=== PATIENT | female | born 1955 | race Hispanic/Latino ===

== ENCOUNTER 2017-10-13 09:57 | Emergency (ER) | payer MEDICARE ==
[~2017-10-13 09:57] MED LIST: AMLO5TAB2 PO; ASPI-1012 PO; CARV6.25 PO; ESOM40CA54 PO; FLUO-126 PO; HYDR-2132 PO; MONT10TA24 PO
[2017-10-13] MEDS ORDERED: IBUPROFEN 600 MG TABLET ONE (10:24)
== END 2017-10-13 10:35 | disposition home or self-care (01) ==
LOC: EDH 09:57
DX: S52.591A Other fractures of lower end of right radius, initial encounter for closed fracture (principal); J45.909 Unspecified asthma, uncomplicated; I10 Essential (primary) hypertension; M81.0 Age-related osteoporosis without current pathological fracture; Z88.6 Allergy status to analgesic agent; W01.0XXA Fall on same level from slipping, tripping and stumbling without subsequent striking against object, initial encounter; Y93.89 Activity, other specified; Y92.098 Other place in other non-institutional residence as the place of occurrence of the external cause; Y99.8 Other external cause status
CPT/HCPCS: 29125; 73090

== ENCOUNTER → 2019-07-22 | Outpatient (CLI) | payer MEDICARE ==
[~2019-07-22] MED LIST changes: -AMLO5TAB2 PO; +AMLO5TAB9 PO; -FLUO-126 PO; +FLUO20CA34 PO
== END | disposition home or self-care (01) ==
LOC: RAH 11:55
PROVIDERS: ATTEND Orthopaedic Surgery
DX: S83.242A Other tear of medial meniscus, current injury, left knee, initial encounter (principal); M25.462 Effusion, left knee; M71.22 Synovial cyst of popliteal space [Baker], left knee; M17.12 Unilateral primary osteoarthritis, left knee; X58.XXXA Exposure to other specified factors, initial encounter; Y93.89 Activity, other specified; Y92.89 Other specified places as the place of occurrence of the external cause; Y99.8 Other external cause status
CPT/HCPCS: 73721

== ENCOUNTER → 2019-12-18 | Outpatient (CLI) | payer MEDICARE ==
[~2019-12-18] MED LIST changes: -FLUO20CA34 PO; +FLUO20CA35 PO; -MONT10TA24 PO; +MONT10TA26 PO
== END | disposition home or self-care (01) ==
LOC: CANSCHCLI → SHCH 11:13
PROVIDERS: ATTEND Internal Medicine Cardiovascular Disease
DX: I35.0 Nonrheumatic aortic (valve) stenosis (principal)
CPT/HCPCS: 93306; 93356

== ENCOUNTER → 2020-01-19 | Outpatient (CLI) | payer MEDICARE ==
[~2020-01-19] MED LIST changes: +REGADENOSON 0.4 MG/5 ML PF SYG IVP ONE; +REGADENOSON 0.4 MG/5 ML PF SYG IVP SCH
== END | disposition home or self-care (01) ==
LOC: SHCH 08:35
PROVIDERS: ATTEND Internal Medicine Cardiovascular Disease
DX: R06.09 Other forms of dyspnea (principal); G89.29 Other chronic pain; R06.02 Shortness of breath
CPT/HCPCS: 78452; 93017; 96374; A9500 ×2; J2785 ×2

== ENCOUNTER 2020-06-15 09:45 | Observation (INO) | payer MEDICARE ==
[~2020-06-15] VITALS: Ht 157.5 cm; Wt 91.7 kg
[~2020-06-15 09:45] MED LIST changes: +AMLO-257 PO; -AMLO5TAB9 PO; -ASPI-1012 PO; -CARV6.25 PO; -ESOM40CA54 PO; -FLUO20CA35 PO; -HYDR-2132 PO; -MONT10TA26 PO; -REGADENOSON 0.4 MG/5 ML PF SYG IVP ONE; -REGADENOSON 0.4 MG/5 ML PF SYG IVP SCH
[2020-06-15 13:12] LABS: BASOPHILS % (AUTO) 0.7 % (0.0-5.0); EOSINOPHILS % (AUTO) 2.4 % (0.0-8.0); HEMATOCRIT 45.1 % (36-48); LYMPHOCYTES % (AUTO) 29.3 % (21.0-51.0); MEAN CORPUSCULAR HEMOGLOBIN 31.2 pg (27.0-33.0); MEAN CORPUSCULAR HGB CONC 32.8 g/dL (32.0-36.0); MEAN CORPUSCULAR VOLUME 94.9 fL (79-99); MONOCYTES % (AUTO) 10.1 % (3.0-13.0); NEUTROPHILS % (AUTO) 57.3 % (40.0-77.0); PLATELET COUNT (AUTO) 243 K/uL (130-400); RED BLOOD CELL COUNT(AUTO) 4.75 MIL/uL (4.00-5.50); RED CELL DISTRIBUTION WIDTH 12.6 % (11.0-15.5); WHITE BLOOD COUNT (AUTO) 5.4 K/uL (4.8-10.8)
[2020-06-15 13:17] LABS: APPEARANCE,URINE Clear (CLEAR); BILIRUBIN,URINE Negative (NEGATIVE); COLOR,URINE Yellow (YELLOW); GLUCOSE, URINE (UA) Negative (NEGATIVE); KETONES,URINE Negative (NEGATIVE); LEUKOCYTE ESTERASE ,URINE Trace (NEGATIVE); NITRATE,URINE Negative (NEGATIVE); OCCULT BLOOD,URINE Negative (NEGATIVE); PH,URINE 6.5 (5.0-8.0); PROTEIN,URINE Negative (NEGATIVE)
[2020-06-15 13:26] LABS: INR 0.91 (0.85-1.15); PROTHROMBIN TIME 9.9 SEC (9.6-11.6)
[2020-06-15 13:29] LABS: CREATININE 0.9 mg/dL (0.5-1.5); POTASSIUM 4.1 mmol/L (3.5-5.1)
[2020-06-15 14:14] LABS: BACTERIA,URINE None Seen /HPF (None Seen); RBC,URINE None Seen /HPF (0-1); WBC,URINE 0-1 /HPF (0-1)
[2020-06-21 09:16] VITALS: BP 169/89
[2020-06-21] MEDS ORDERED: CARV12.511 PO (09:58)
[2020-06-21] MEDS ORDERED: DEXL60CA3 PO (09:58)
[2020-06-21] MEDS ORDERED: PARO-37 PO (09:58)
[2020-06-21] MEDS ORDERED: AEC81 PO (09:58)
[2020-06-21] MEDS ORDERED: BREO ELLIPTA IH (09:58)
[2020-06-21] MEDS ORDERED: MONT10TA96 PO (09:58)
[2020-06-21] MEDS ORDERED: ALBU2.5V2 IH (09:58)
--- NOTE | 2020-06-21 10:12 | NUR ---
RE: ABNORMAL LABS REPORTED ABNORMAL URINALYSIS TO DR AMARO, NO NEW ORDERS RECEIVED.
[2020-06-22] VITALS (27 sets, daily range): BP systolic 95–144; BP diastolic 40–89
[2020-06-22] MEDS ORDERED: LACTATED RINGERS 1000ML 1,000 ML IV ONE (06:41)
[2020-06-22] MEDS: CEFAZOLIN SODIUM 1 GM VIAL IVP SCH ×3 (06:55→17:30)
[2020-06-22] MEDS ORDERED: CEFAZOLIN SODIUM 1 GM VIAL ONE (07:02)
[2020-06-22] MEDS ORDERED: TRANEXAMIC ACID 1000MG/10ML ONE ×2 (07:02→10:51)
[2020-06-22] MEDS ORDERED: DEXAMETHASONE SOD PHOSPHATE 10MG/ML 1ML VIAL ONE (07:32)
[2020-06-22] MEDS ORDERED: SUCCINYLCHOLINE CHLORIDE 20 MG/ML 10 ML VIAL ONE (07:32)
[2020-06-22] MEDS ORDERED: NEOSTIGMINE 5MG/5ML SYR IV ONE (07:32)
[2020-06-22] MEDS ORDERED: PROPOFOL 10 MG/ML 20ML VIAL IV ONE (07:32)
[2020-06-22] MEDS ORDERED: LIDOCAINE PF 2% 5ML ABBOJECT ONE (07:32)
[2020-06-22] MEDS ORDERED: ONDANSETRON HCL 4 MG/2 ML VIAL ONE (07:32)
[2020-06-22] MEDS ORDERED: GLYCOPYRROLATE 1 MG/5 ML SYRINGE ONE (07:32)
[2020-06-22] MEDS ORDERED: MIDAZOLAM HCL 1 MG/ML 2ML VIAL ONE (07:33)
[2020-06-22] MEDS ORDERED: ROCURONIUM 10MG/1ML SYR 10 MG/ML ML ONE (07:33)
[2020-06-22] MEDS ORDERED: FENTANYL CITRATE PF 50 MCG/1 ML 2ML VIAL ONE (07:33)
[2020-06-22] MEDS ORDERED: MEPERIDINE-PF 25 MG/ML SYG ONE ×3 (07:37→11:26)
[2020-06-22] MEDS ORDERED: ROPIVACAINE 0.5% 5MG/ML 30ML IJ ONE (07:39)
[2020-06-22] MEDS ORDERED: EPHEDRINE SULFATE 50 MG/ML AMPULE ONE (08:14)
[2020-06-22] MEDS ORDERED: HETASTARCH IN 0.9 % NACL 500 ML IV ONE (08:21)
[2020-06-22] MEDS ORDERED: ALBUTEROL INHALER 90MCG/INH IH ONE (09:30)
[2020-06-22] MEDS ORDERED: KETOROLAC TROMETHAMINE 30MG/ML ONE (10:10)
[2020-06-22] MEDS ORDERED: LIDOCAINE HCL-MPF 1% 2ML VIAL IV PRN (10:30)
[2020-06-22] MEDS: SODIUM CHLORIDE 0.9% 1000ML 1,000 ML IV SCH ×2 (10:30→20:30)
[2020-06-22] MEDS ORDERED: ONDANSETRON HCL 4 MG/2 ML VIAL IVP PRN (10:30)
[2020-06-22] MEDS ORDERED: OXYCODONE HCL 5 MG TAB PO PRN (10:30)
[2020-06-22] MEDS ORDERED: TRAMADOL HCL 50 MG TABLET PO PRN (10:30)
[2020-06-22] MEDS ORDERED: TEMAZEPAM 15 MG CAPSULE PO PRN (10:30)
[2020-06-22] MEDS: ACETAMINOPHEN EXTRA STRENGTH 500 MG TABLET PO SCH ×2 (10:30→18:47)
[2020-06-22] MEDS ORDERED: CALCIUM CARBONATE 500 MG TABLET PO PRN (10:30)
[2020-06-22] MEDS ORDERED: POTASSIUM CHLORIDE 20 MEQ ERTAB PO PRN (10:30)
[2020-06-22] MEDS ORDERED: POTASSIUM CHLORIDE 10% ELIXIR 20 MEQ/15 ML UDCUP PO PRN (10:30)
[2020-06-22] MEDS ORDERED: DiphenhydrAMINE HCL 50 MG/ML VIAL IVP PRN (10:30)
[2020-06-22] MEDS ORDERED: KETOROLAC TROMETHAMINE 15MG/ML IV PRN (10:30)
[2020-06-22] MEDS ORDERED: POTASSIUM CHLORIDE 20MEQ/100ML 100 ML IV PRN (10:30)
[2020-06-22] MEDS ORDERED: FERROUS FUMARATE 324 MG TABLET PO PRN (10:30)
--- NOTE | 2020-06-22 15:25 | NUR ---
DCP CM met with pt discussed dc plans. Pt is independent prior to admission, lives at home with daughter. Pt has a current working walker, wheelchair, bedside commode. Denies any other equipments/services. Feels safe to go back home, daughter able to assist with transportation and needs as necessary. Pt agreeble for home w/HH, NUNO signed for [facility]. DC plan to home w/HH. CM to continue to follow up. Addendum: 06/22/20 at 1527 by JOSE CRUZ ARCEO LVN CM Amended: Links added.
--- NOTE | 2020-06-22 15:32 | NUR ---
CM Note: [facility] pending approval Faxed order, clinicals to [facility]. Spoke to Micaela, received clinicals, will run benefits. Pt pending approval. Primary nurse Naomie KHAN aware. CM to continue to follow up.
--- NOTE | 2020-06-22 16:15 | NUR ---
CM Note: [facility] approval CM spoke to Micaela flores/[facility], pt has approval. Pt has own working current standard walker no wheels and 3in1 chair. Pt safe to DC once MD clear. Primary nurse Naomie KHAN aware. Dr Schulz updated. CM to continue to follow up.
[2020-06-22] MEDS ORDERED: ALBUTEROL SULFATE 0.083% 2.5 MG/3 ML INH IH PRN (16:30)
[2020-06-22] MEDS ORDERED: ARTIFICAL TEARS SOL 15 ML OD PRN (17:45)
[2020-06-22] MEDS: BUDESONIDE 0.5 MG/2 ML INH IH SCH (18:22)
[2020-06-22] MEDS: ALBUTEROL SULFATE 0.083% 2.5 MG/3 ML INH IH SCH ×2 (18:22→23:41)
--- NOTE | 2020-06-22 20:00 | NUR ---
PATIENT RECEIVED IN BED, AAOX3, NO ACUTE DISTRESS NOTED. POST OP LEFT TKA, WITH DRESSING DRY AND INTACT, PICCO FLASHING "OK". POC DISCUSSED WITH PATIENT, INSTRUCTED ON PAIN CONTROL. PATIENT VOICED UNDERSTANDING. WILL CONT TO MONITOR CLOSELY. Addendum: 06/22/20 at 2103 by SUJATA MICHELLE RN RN Amended: Links added.
[2020-06-22] MEDS: OXYCODONE HCL 5 MG TAB PO PRN (20:42)
[2020-06-22] MEDS: CELECOXIB 200 MG CAP PO SCH (20:43)
[2020-06-22] MEDS: ASPIRIN 81MG TAB.CHEW PO SCH (20:43)
[2020-06-22] MEDS: PREGABALIN 25 MG CAP PO SCH (20:43)
[2020-06-22] MEDS: CARVEDILOL 12.5 MG TABLET PO SCH (20:43)
[2020-06-22] MEDS: FAMOTIDINE 20MG TAB 20 MG TAB PO SCH (20:43)
[2020-06-22] MEDS ORDERED: MONTELUKAST SODIUM 10 MG TAB PO SCH (21:00)
[2020-06-23] MEDS: CEFAZOLIN SODIUM 1 GM VIAL IVP SCH (02:38)
[2020-06-23] MEDS: ACETAMINOPHEN EXTRA STRENGTH 500 MG TABLET PO SCH ×2 (02:39→11:59)
[2020-06-23 03:49] VITALS: BP 125/70
[2020-06-23 03:51] LABS: HEMATOCRIT 35.2 % (36-48); MEAN CORPUSCULAR HEMOGLOBIN 31.2 pg (27.0-33.0); MEAN CORPUSCULAR VOLUME 94.6 fL (79-99); RED BLOOD CELL COUNT(AUTO) 3.72 MIL/uL (4.00-5.50); RED CELL DISTRIBUTION WIDTH 12.6 % (11.0-15.5); WHITE BLOOD COUNT (AUTO) 8.6 K/uL (4.8-10.8)
[2020-06-23 04:05] LABS: CREATININE 0.9 mg/dL (0.5-1.5); POTASSIUM 3.7 mmol/L (3.5-5.1)
[2020-06-23] MEDS: ALBUTEROL SULFATE 0.083% 2.5 MG/3 ML INH IH SCH ×2 (06:20→11:10)
[2020-06-23] MEDS: BUDESONIDE 0.5 MG/2 ML INH IH SCH (06:20)
[2020-06-23] MEDS: SODIUM CHLORIDE 0.9% 1000ML 1,000 ML IV SCH (06:30)
[2020-06-23] MEDS: OXYCODONE HCL 5 MG TAB PO PRN ×3 (08:35→16:12)
[2020-06-23] MEDS: CELECOXIB 200 MG CAP PO SCH (08:36)
[2020-06-23] MEDS: ASPIRIN 81MG TAB.CHEW PO SCH (08:36)
[2020-06-23] MEDS: CARVEDILOL 12.5 MG TABLET PO SCH (08:37)
[2020-06-23] MEDS: PREGABALIN 25 MG CAP PO SCH (08:37)
[2020-06-23 08:56] VITALS: BP 125/78
[2020-06-23] MEDS ORDERED: PANTOPRAZOLE SODIUM 40 MG TABLET.DR PO SCH (09:00)
[2020-06-23] MEDS: FAMOTIDINE 20MG TAB 20 MG TAB PO SCH (09:00)
[2020-06-23] MEDS ORDERED: AMLODIPINE BESYLATE 5 MG TAB PO SCH (09:00)
[2020-06-23] MEDS ORDERED: PAROXETINE HCL 20 MG TABLET PO SCH (09:00)
[2020-06-23] MEDS ORDERED: POLYETHYLENE GLYCOL 3350 17 GM POWD.PACK PO SCH (09:00)
--- NOTE | 2020-06-23 13:03 | NUR ---
[id number] patient signed RATLIFF Letter, I faxed RATLIFF Letter to [phone] and placed in chart under consent tab.
[2020-06-23 16:24] VITALS: BP 161/84
[2020-06-23] MEDS ORDERED: AEC81 PO (18:12)
[2020-06-23] MEDS ORDERED: HYDR-4457 PO (18:12)
--- NOTE | 2020-06-23 19:00 | NUR ---
D/C PAPERWORK COMPLETE, D/C REPORT CALLED VIN AT [facility] D/C INSTRUCTIONS ON AFTER CARE FOR A KNEE REPLACEMENT GIVEN TO PATIENT AND SHAHEEN DRESSING CHANGED, IV ACCESS REMOVED; PT INSTRUCTED ON PATIENT ACTIVITY WBAT W/ WALKER, PAIN MEDICATION, BLOOD THINNER MEDICATION ASPIRIN BID, SIGNS AND SYMPTOMS OF INFECTION OR OTHER PROBLEMS TO REPORT TO MD OR CALL 911 IF AN EMERGENCY, CARE OF SHAHEEN DRESSING INCLUDING OK TO GET WET WHEN SHOWERING--PT STATED UNDERSTANDING OF ALL INSTRUCTIONS.
[2020-06-25] MEDS ORDERED: BISACODYL 10 MG SUPP.RECT RC PRN (10:30)
== END 2020-06-23 19:50 | disposition home health service (06) ==
LOC: EDSTATUS 09:45 → INTOOBSV 06-22 06:00 → DAHIP 06-22 06:00 → 3BH 06-22 12:13
PROVIDERS: ADMIT Orthopaedic Surgery; ATTEND Orthopaedic Surgery
DX: M17.12 Unilateral primary osteoarthritis, left knee (principal); Z20.828 Contact with and (suspected) exposure to other viral communicable diseases; D64.9 Anemia, unspecified
CPT/HCPCS: 27447; 36415 ×2; 80048 ×2; 81001; 85025; 85027; 85610; 87641; 88305; 88311; 94640 ×5; 94664; 96361 ×2; 96374; 96376; 97039 ×4; 97116 ×2; 97161; 97530 ×2; A4215; A4216; A4221; A4222; A4223 ×2; A4649 ×3; A4657; A4663; A4930 ×2; A9272; C1776; G0378 ×30; G8978; G8979; G8980; G8981; G8982; G8983; J0330; J0690 ×3; J1100; J1885; J2001; J2175 ×3; J2250; J2405; J2704; J2710; J2795; J3010; J3490 ×5; J7120 ×2; U0003

== ENCOUNTER → 2021-03-23 | Outpatient (CLI) | payer MEDICARE ==
[~2021-03-23] MED LIST changes: +AEC81 PO; +ALBU2.5V2 IH; +BREO ELLIPTA IH; +CARV12.511 PO; +DEXL60CA3 PO; +HYDR-4457 PO; +MONT10TA32 PO; +PARO-37 PO
== END | disposition home or self-care (01) ==
LOC: RAH 10:39
PROVIDERS: ATTEND Internal Medicine Gastroenterology
DX: R14.0 Abdominal distension (gaseous) (principal); R10.13 Epigastric pain; R11.2 Nausea with vomiting, unspecified; R10.11 Right upper quadrant pain
CPT/HCPCS: 78264; A9541

== ENCOUNTER 2021-12-06 22:55 | Emergency (ER) | payer MEDICARE ==
[~2021-12-06] VITALS: Ht 157.5 cm; Wt 91.2 kg
[~2021-12-06 22:55] MED LIST changes: +MONT-39 PO; -MONT10TA32 PO
[2021-12-07 00:05] VITALS: BP 138/75
== END 2021-12-07 01:13 | disposition home or self-care (01) ==
LOC: EDH 22:55
DX: S01.01XA Laceration without foreign body of scalp, initial encounter (principal); Z88.5 Allergy status to narcotic agent; Z79.82 Long term (current) use of aspirin; Z79.899 Other long term (current) drug therapy; W01.198A Fall on same level from slipping, tripping and stumbling with subsequent striking against other object, initial encounter; Y93.89 Activity, other specified; Y92.89 Other specified places as the place of occurrence of the external cause; Y99.8 Other external cause status
CPT/HCPCS: 12002; 70450; 72125

== ENCOUNTER → 2023-12-11 | Outpatient (CLI) | payer MEDICARE ==
[~2023-12-11] MED LIST changes: -AEC81 PO; -ALBU2.5V2 IH; -DEXL60CA3 PO; -HYDR-4457 PO; +OMEP40CA21 PO; -PARO-37 PO; +PARO30TA60 PO
== END | disposition home or self-care (01) ==
LOC: RAH 08:55
PROVIDERS: ATTEND Surgery
DX: K44.9 Diaphragmatic hernia without obstruction or gangrene (principal); R12 Heartburn; Z93.4 Other artificial openings of gastrointestinal tract status
CPT/HCPCS: 74240

== ENCOUNTER → 2024-05-06 | Outpatient (CLI) | payer MEDICARE | END | disposition home or self-care (01) | LOC: RAH 09:50 | PROVIDERS: ATTEND Surgery | DX: K44.9 Diaphragmatic hernia without obstruction or gangrene (principal); K21.9 Gastro-esophageal reflux disease without esophagitis | CPT/HCPCS: 74220 ==

== ENCOUNTER 2024-07-20 14:00 | Inpatient (IN) | payer MEDICARE ==
[~2024-07-20] VITALS: Ht 157.5 cm; Wt 74.5 kg
[~2024-07-20 14:00] MED LIST changes: -BREO ELLIPTA IH; -CARV12.511 PO; -OMEP40CA21 PO; -PARO30TA60 PO
[2024-07-20 15:39] VITALS: BP 131/77; PULSE 74; RESP 16; TEMP 97.7
[2024-07-20 15:59] LABS: BASOPHILS # (AUTO) 0.03 K/uL (0.00-0.20); BASOPHILS % (AUTO) 0.4 % (0.0-5.0); EOSINOPHILS # (AUTO) 0.02 K/uL (0.00-0.70); EOSINOPHILS % (AUTO) 0.3 % (0.0-8.0); IMMATURE GRANULOCYTE ABSOLUTE 0.01 K/uL (0-1); LYMPHOCYTES # (AUTO) 1.2 K/uL (1.0-4.8); LYMPHOCYTES % (AUTO) 17.5 % (21.0-51.0); MEAN CORPUSCULAR HEMOGLOBIN 31.3 pg (27.0-33.0); MEAN CORPUSCULAR HGB CONC 34.6 g/dL (32.0-36.0); MEAN CORPUSCULAR VOLUME 90.3 fL (79-99); MONOCYTES # (AUTO) 0.3 K/uL (0.1-1.0); MONOCYTES % (AUTO) 4.7 % (3.0-13.0); NEUTROPHILS # (AUTO) 5.4 K/uL (1.8-7.7); PLATELET COUNT (AUTO) 232 K/uL (130-400); RED BLOOD CELL COUNT(AUTO) 4.32 MIL/uL (4.00-5.50); RED CELL DISTRIBUTION WIDTH 12.2 % (11.0-15.5)
[2024-07-20 16:08] LABS: CREATININE 0.7 mg/dL (0.5-1.0); POTASSIUM 4.8 mmol/L (3.5-5.1)
--- NOTE | 2024-07-21 06:29 | EKG ---
[facility] Test Date: 2024-07-20 Test Time: 16:28:15 Pat Name: KATLIN HUMPHREY Department: Patient ID: [id number] Room: Gender: F Braze Operator: [id number] : 1955 Requested By: CRISTINA ARCEO Order Number: [id number] Reading MD: Eligio Birmingham Measurements Intervals [place] Rate: 70 P: 8 PA: 150 QRS: -27 QRSD: 89 T: 11 QT: 408 QTc: 440 Interpretive Statements Sinus rhythm Inferior infarct, old Compared to ECG 08/24/2022 12:05:09 No significant changes Electronically Signed On 07-21-2024 18:10:35 [employer] INSTRUCTOR by Eligio Birmingham Please click the below link to view image of tracing.
[2024-07-21] MEDS ORDERED: PANT40TA54 PO (09:04)
[2024-07-21] MEDS ORDERED: FAMO40TA75 PO (09:04)
[2024-07-21] MEDS ORDERED: CARV6.25 PO (09:04)
[2024-07-21] MEDS ORDERED: FLUT1BLS3 IH (09:04)
[2024-07-21] MEDS ORDERED: PARO7.5C2 PO (09:04)
--- NOTE | 2024-07-22 09:05 | NUR ---
RE: LABS REPORTED BMP RESULTS TO DR BAPTISTE, NO NEW ORDERS RECEIVED.
[2024-07-23] VITALS (24 sets, daily range): BP systolic 89–134; BP diastolic 31–70; PULSE 48–80; RESP 10–20; TEMP 97–97.8; O2SAT 96–99
[2024-07-23] MEDS: INDOCYANINE GREEN 25 MG VIAL IJ ONE (06:53)
[2024-07-23] MEDS: acetaMINOPHEN 100 ML ONE (07:03)
[2024-07-23] MEDS: FAMOTIDINE 20MG VIAL IV ONE (07:03)
[2024-07-23] MEDS ORDERED: ketaMINE HCL 100 MG/ML 5ML VIAL IJ ONE (07:09)
[2024-07-23] MEDS ORDERED: LIDOCAINE PF 100MG/5ML (2%) SYRINGE 5ML ONE (07:14)
[2024-07-23] MEDS ORDERED: FENTanyl CITRate PF 50 MCG/1 ML 2ML VIAL ONE (07:14)
[2024-07-23] MEDS ORDERED: rocuRONium bROMide 10MG/1ML 5ML VL ONE ×2 (07:14→08:35)
[2024-07-23] MEDS ORDERED: proPOFol 10 MG/ML 20ML VIAL IV ONE (07:14)
[2024-07-23] MEDS ORDERED: ondanSETRON 4MG INJ ONE (08:17)
[2024-07-23] MEDS ORDERED: dexaMETHasone SOD PHOSPHATE 10MG/ML 1ML VIAL ONE (08:17)
[2024-07-23] MEDS: ceFAZolin SODIUM 2 GM VIAL ONE (08:25)
[2024-07-23] MEDS ORDERED: ePHEDrine SULFate 50 MG/ML AMPULE ONE (08:25)
[2024-07-23] MEDS ORDERED: NEOSTIGMINE METHYLSULFATE 1MG/ML IV ONE (08:26)
[2024-07-23] MEDS ORDERED: GLYCOPYRROLATE 0.2 MG/ML 5 ML VIAL ONE (08:26)
[2024-07-23] MEDS: BUPIvacaine/PF 0.5% 30ML VIAL ONE (08:38)
[2024-07-23] MEDS ORDERED: phenylEPHRINE HCL 10 MG/ML 1ML VIAL IV ONE (09:01)
[2024-07-23] MEDS: metRONIDazole 500MG/100ML BAG 100 ML ONE (09:53)
[2024-07-23] MEDS: LACTATED RINGERS 1000ML 1,000 ML IV ONE (09:53)
[2024-07-23] MEDS ORDERED: PROCHLORPERAZINE 10MG/2ML INJ IV PRN (10:30)
[2024-07-23] MEDS: ENOXAPARIN SODIUM 30 MG/0.3 ML SQ SCH (10:30)
[2024-07-23] MEDS ORDERED: ketOROlac 15MG/ML VIAL (15MG/ML) IV PRN (10:30)
[2024-07-23] MEDS: LACTATED RINGERS 1000ML 1,000 ML IV SCH (10:30)
--- NOTE | 2024-07-23 11:20 | OP ---
Operative Note: DATE OF PROCEDURE: 07/23/24 SURGEON: CRISTINA ARCEO MD [employer]INEER[employer] OFFICER: Rm Arceo MD PA-C ANESTHESIA: General and Local ANESTHESIOLOGIST/PLUMBER AND TINNER: [facility] Anesthesia team PREOPERATIVE DIAGNOSIS: Gastroparesis, Symptomatic Gastro-esophageal reflux, Hx of Revision hiatal hernia repair with loop gastro-jejunostomy POSTOPERATIVE DIAGNOSIS: As above SYNOPSIS: Reversal of Loop Gastrojejunostomy and Conversion to you en y gastric bypass type anatomy performed for purposes of addressing recalcitrant GERD and gastroparesis PROCEDURE: 1. Robotic laparoscopic reversal of loop gastrojejunostomy 2. Creation of You-en-Y gastric bypass type anatomy to address gastroesophageal reflux and gastroparesis 3. EGD ESTIMATED BLOOD LOSS: min, <30cc INDICATIONS: Patient had previously undergone hiatal hernia repair with fundoplication and subsequent revision hiatal hernia repair and subsequent creation of loop gastrojejunostomy all to address severe symptomatic gastroes ophageal reflux in the setting of gastroparesis. Given the inability of these various operations to control her reflux symptoms and gastric emptying the patient is next available option was conversion to gastric bypass type anatomy. DESCRIPTION OF PROCEDURE: After standard precautions and preparations were undertaken a Veress needle and optical trocar were used to enter the abdominal cavity. All other instruments were placed under direct vision. The robotic system was docked in the standard fashion. We began our operation by identifying the gastrojejunostomy at the most dependent portion of the greater curve of the stomach. A linear stapler with staple line reinforcement was used to divide the anastomosis and separate the stomach away from the small bowel. Both staple lines were examined and found to be intact with no sign of leak or problem. We then moved to creation of the gastric pouch. We created a window between the lesser curve neurovascular bundle and the gastric wall. We entered the lesser sac. A linear stapler with staple line reinforcement was used to create a gastric pouch. Patient's previous hiatal hernia and subsequent revision hiatal hernia with fundoplication was not taken down due to excessive scarring and the pouch was created around this area. We then identified the ligament of Treitz and counted distally to approximately 50-75 cm to an area of small bowel that reached up to the pouch without significant tension. This loop of small bowel was sutured to the gastric pouch in anticipation of the future stapled anastomosis. Bowel was divided to create a distal cut end of the biliopancreatic limb and a proximal cut end of the You limb. The You limb was then counted down approximately 50 cm and mated to the cut end of the biliopancreatic limb in anticipation of the future jejunal jejunostomy anastomosis. Monopolar cautery was used to create a gastrotomy and enterotomy and a linear stapler was introduced to create an anastomosis at the gastrojejunostomy. The defect left behind of the stapler was sutured closed. Monopolar cautery was used to create two enterotomies in the area of the jejunal jejunostomy and a linear stapler was used to create the anastomosis. The defect left behind of the stapler was sutured closed. The mesenteric defect between the two limbs of small bowel as well as the defect between the transverse colon mesentery and antecolic You limb were closed using permanent suture to prevent future internal hernias. At the end of the case as well as throughout the case my partner utilize the EGD scope to verify appropriate anatomy. He was able to traverse the gastrojejunal anastomosis with no issue. He was able to take the scope distally and utilizing a robotic assisted method of telescoping the small bowel onto the scope was able to get to the jejunal jejunostomy as well. Both anastomosis were widely patent with no sign of leak or problem. The end of the case all instrument counts were verified as correct including needles and sponges. CRISTINA ARCEO MD Jul 23, 2024 11:20
--- NOTE | 2024-07-23 12:04 | PN ---
GENERAL SURGERY PROGRESS NOTE Date/Time Patient Seen: [ 07/23/2024 11:32 a.m.] Problem List: [ ] Interval History: [Postop day 0. Pain tolerable with p.r.n. medication. ] Current Medications Medications (Trade) Dose Ordered Sig/Mary Route Start Time Stop Time Status Last Admin Dose Admin Enoxaparin Sodium (Lovenox) 30 mg Q12H SQ 07/23/24 10:30 08/22/24 10:29 Famotidine (Pepcid 20mg Vial) 20 mg BID IV 07/23/24 21:00 08/22/24 20:59 Lactated Ringer's 1,000 ml @ 125 mls/hr Q8H IV 07/23/24 10:30 08/22/24 10:29 Physical Examination: GENERAL: [No acute distress.] Abdominal exam: Incisions clean, dry and intact, Dermabond in place Vital Signs (last 8hr) Date Time Temp Pulse Resp B/P (MAP) Pulse Ox O2 Delivery O2 Flow Rate FiO2 07/23/24 11:05 54 12 106/40 100 Nonrebreathing Mask 10.0 07/23/24 11:00 54 12 100/34 100 Nonrebreathing Mask 10.0 07/23/24 10:55 53 12 100/35 100 Nonrebreathing Mask 10.0 07/23/24 10:50 58 12 102/34 95 Nonrebreathing Mask 10.0 07/23/24 10:45 57 13 96/47 100 Nonrebreathing Mask 10.0 07/23/24 10:40 64 10 101/40 100 Nonrebreathing Mask 10.0 07/23/24 10:35 97.3 66 13 103/43 100 Nonrebreathing Mask 10.0 07/23/24 06:15 97.0 80 18 134/70 99 Room Air Laboratory: [ ] Diagnostics / Radiology: [Copy/Paste Echos/Imaging Report here] Impression and Plan: [Plan is for discharge home in the next day or two as long as patient tolerating p.o. intake, ambulatory and pain under control. Discussed with patient and family. They understand and agree. ] CRISTINA ARCEO MD Jul 23, 2024 12:04
--- NOTE | 2024-07-23 12:30 | NUR ---
RECEIVED PATIENT FROM OPERATING ROOM. PATIENT IS ALERT, ORIENTED IN PERSON, TIME AND PLACE. NO SIGNS OF RESPIRATORY DISTRESS. PATIENT WITH A NASAL CANULA @2LTS. BOWEL SOUNDS PRESENT BUT HYPOACTIVE IN ALL FOUR ABDOMINAL QUADRANTS. DORSALIS PEDIS PRESENT ON BOTH FEET, STRONG. PATIENT HAS 5 ABDOMINAL SURGICAL INCISIONS ON LOWER ABDOMEN WITH DERMABOND. NO BLEEDING OR ERYTHEMA ON SURROUNDING AREAS. ABDOMEN SOFT AND TENDER. PATIENT VERBALIZED NO PAIN AT THE MOMENT. DISCUSSED PLAN OF CARE, PAIN MANAGEMENT, MEDICATIONS AND DIET RESTRICTIONS. PATIENT VERBALIZED UNDERSTANDING. PIV TO 20G TO RIGHT FOREARM. LR @ 125 ML/HR.
[2024-07-23] MEDS: hydroMORPHone 1 MG INJ IVP PRN (16:08)
[2024-07-23] MEDS: ondanSETRON 4MG INJ IVP PRN (16:10)
[2024-07-23] MEDS: FAMOTIDINE 20MG VIAL IV SCH (20:18)
[2024-07-23] MEDS: HYDROcod/acetaMINOPHEN 7.5/325 MG 15 ML UDCUP PO PRN (20:21)
[2024-07-24] VITALS (7 sets, daily range): BP systolic 101–137; BP diastolic 62–88; PULSE 64–84; RESP 16–20; TEMP 97.5–99.1; O2SAT 96
--- NOTE | 2024-07-24 10:33 | NUR ---
DCP-Home Pt is awake, alert, oriented. States she is retired and lives with daughter Colt Goins [phone]. Verbalized she has a walker at home and is able to perform ADLs, anticipates discharge plan is for home. Addendum: 07/24/24 at 1038 by VINNIE LAW RN CM Amended: Links added.
--- NOTE | 2024-07-24 14:46 | NUR ---
RD reviewed educational material for post-op diet recommendations. Pt was informed of importance of lifelong vitamin/mineral supplementation, choosing protein first during meals (pt was educated on higher protein requirements), choosing low calorie, sugar free, carbonated free and caffeine beverages. RD also informed pt on lifelong commitment to exercise and dietary recommendations for optimal success post surgery. RD encouraged getting blood work every 3 to 6 months, including B-vitamins, Pt verbalized understanding. RD informed Pt on moving around after procedure to prevent DVT, Pt verbalized understanding. Pt was encouraged to contact RD as questions arise and to attend support groups. Fair compliance suspected. Pt will benefit from outpatient bariatric dietitian follow up post procedure. Pt to follow up with PCP for labs. Recommendations: -Continue phase 1 bariatric diet for 1 week -Monitor electrolytes -Monitor diet tolerance -Monitor BM -Monitor wts -Monitor PO intake -Recommend Pt to follow up with PCP -Monitor goals of care RD available for consult per protocol Addendum: 07/24/24 at [address] Amended: Links added.
--- NOTE | 2024-07-24 16:57 | PN ---
GENERAL SURGERY PROGRESS NOTE Date/Time Patient Seen: [07/24/2024 at 4:15 p.m. ] Problem List: [Gastroesophageal reflux disease Gastroparesis ] Interval History: [Patient is a pleasant 69-year-old female status post robotic reversal of loop gastrojejunostomy and creation of Narayan-en-Y gastric bypass anatomy to address GERD and gastroparesis. Patient is progressing well. The patient is awake alert and oriented x3 and resting comfortably in bed. Family present in the room. The patient endorses pain that is tolerable with medication. The patient has been ambulating in the room. Has not gone out. The patient reports voiding freely and passing gas. Patient's main concern is pain. Interested in staying overnight for observation and pain management. The patient is tolerating liquids well without any signs of dysphagia or other upper or lower GI symptoms. Vital signs are stable. Patient is clinically stable.] Current Medications Medications (Trade) Dose Ordered Sig/Mary Route Start Time Stop Time Status Last Admin Dose Admin Enoxaparin Sodium (Lovenox) 30 mg Q12H SQ 07/23/24 10:30 08/22/24 10:29 07/24/24 13:10 30 MG Famotidine (Pepcid 20mg Vial) 20 mg BID IV 07/23/24 21:00 08/22/24 20:59 07/24/24 09:01 20 MG Lactated Ringer's 1,000 ml @ 125 mls/hr Q8H IV 07/23/24 10:30 08/22/24 10:29 07/24/24 09:01 125 MLS/HR Physical Examination: GENERAL: [No acute distress.] HEAD: [Normal with no signs of head trauma.] EYES: [PERRLA, EOMI, conjunctiva and sclera normal.] ENT: [Hearing grossly intact, normal oropharynx.] NECK: [Supple without JVD. There is no tenderness, lymphadenopathy, or masses. No thyromegaly. Normal carotid upstrokes without bruits.] LUNGS: [Clear breath sounds bilaterally. There are right basilar rales one third of the way up the chest. No wheezes, or rhonchi.] HEART: [Normal rate and rhythm. Normal S1 and S2 without mumurs, gallop or rub.] VASC: [Peripheral pulses +2 bilaterally.] ABD: [Bowel sounds normal, soft, nontender, no masses, no organomegaly. No audible bruits. Incisions clean and dry and well approximated] : [Not examined] LYMPH: [No lymphadenopathy noted.] EXT: [No clubbing, cyanosis or edema.] SKIN: [No rashes or lesions noted.] NEURO: [Awake, alert, and oriented x3. No focal sensory or strength deficits noted.] Vital Signs (last 8hr) Date Time Temp Pulse Resp B/P (MAP) Pulse Ox O2 Delivery O2 Flow Rate FiO2 07/24/24 12:00 99.1 78 16 101/65 95 Room Air Laboratory: [ ] Impression and Plan: [Postoperative day one. The patient is progressing well. We will continue to monitor and treat pain as needed. GI/DVT prophylaxis recommended and encouraged. The patient may advance to full liquid diet and resume home medications. Incision care, hydration, activity and dietary restrictions discussed with the patient. The patient understands and agrees. The patient continues to endorse pain and lack of ambulation. The plan is to keep the patient overnight and manage pain appropriately, encourage long distance ambulation with assistance if needed. We will follow up tomorrow to consider discharge.] KERRY RODRIGUEZ Jul 24, 2024 16:57
[2024-07-24] MEDS: FAMOTIDINE 20MG TAB PO SCH (21:00)
[2024-07-24] MEDS: carVEDIlol 6.25 MG TABLET PO SCH (21:01)
[2024-07-24] MEDS: monteLUKAST sodIUM 10 MG TAB PO SCH (21:01)
[2024-07-25 00:08] VITALS: BP 102/64; PULSE 81; RESP 18; TEMP 98.8
[2024-07-25 04:30] VITALS: BP 100/61; PULSE 76; RESP 18; TEMP 98.2
[2024-07-25] MEDS ORDERED: PANTOPrazole 40 MG TAB DR PO SCH (07:30)
[2024-07-25 08:00] VITALS: O2SAT 96
[2024-07-25 08:09] VITALS: BP 124/71; PULSE 71; RESP 16; TEMP 98.5
[2024-07-25] MEDS: FLUTICASONE IH SCH (09:00)
[2024-07-25] MEDS: UMECLIDIN IH SCH (09:00)
[2024-07-25] MEDS: [UNRECOGNIZED DRUG - OTHER] IH SCH (09:00)
[2024-07-25] MEDS: VILANTER IH SCH (09:00)
[2024-07-25] MEDS ORDERED: amLODIPine 5 MG TAB PO SCH (09:00)
[2024-07-25] MEDS ORDERED: hydroMORPHone 0.5 MG SYG (0.5MG/0.5ML) IVP PRN (09:00)
[2024-07-25] MEDS: FAMOTIDINE 20MG VIAL IV SCH (09:08)
[2024-07-25] MEDS: PARoxetine HCL 20 MG TABLET PO SCH (09:09)
[2024-07-25] MEDS: PANTOPrazole 40 MG TAB DR PO SCH (09:09)
[2024-07-25 12:00] VITALS: BP 134/79; PULSE 77; RESP 16; TEMP 98.2
--- NOTE | 2024-07-25 15:29 | DS ---
Discharge Summary Hospital Course Patient has progressed well. Her VSS. She is tolerating clear liquids without any n/v. BBS are clear. Abd soft and not distended with +BS. Incisions D&I tariq with dermabond. She is voiding and has had +bm today. Plan for discharge. Home care instructions with ER Warnings given to patient. Instructed to keep f/u appt on 07/31/24 at [facility]. She verbalized understanding and agreement. MARIO LAU NP Jul 25, 2024 15:29
[2024-07-25 16:00] VITALS: BP 154/75; PULSE 79; RESP 16; TEMP 98.2
== END 2024-07-25 17:25 | disposition home or self-care (01) | DRG 328 ==
LOC: DAHIP 07-23 06:01 → 4DH 07-23 12:30
PROVIDERS: ADMIT Surgery; ATTEND Surgery
PROC: 8E0W4CZ Robotic Assisted Procedure of Trunk Region, Percutaneous Endoscopic Approach (ICD-10-PCS; 2024-07-23)
PROC: 0D164ZA Bypass Stomach to Jejunum, Percutaneous Endoscopic Approach (ICD-10-PCS; principal; 2024-07-23 08:06)
PROC: 0DJ08ZZ Inspection of Upper Intestinal Tract, Via Natural or Artificial Opening Endoscopic (ICD-10-PCS; 2024-07-23 08:06)
DX: K31.84 Gastroparesis (principal); K21.9 Gastro-esophageal reflux disease without esophagitis
CPT/HCPCS: 36415; 43235; 80048; 85025; 93005; 94760; A4606; G0378; J1100; J1171; J1650; J2003; J2371; J2405; J2704; J2710; J3010; J3490; J7030; J7120; A4215; A4216; A4221; A4222; A4223; A4600; A4649; A4663; A4930; A6260; J0665; J0690; L0625

== ENCOUNTER → 2024-09-02 | Outpatient (CLI) | payer MEDICARE ==
[~2024-09-02] MED LIST changes: +CARV6.25 PO; +FAMO40TA75 PO; +FLUT1BLS3 IH; +PANT40TA54 PO; +PARO7.5C2 PO
--- NOTE | 2024-09-02 14:08 | HMCIMG ---
HEPATOBILIARY SCAN INDICATION: Unspecified abdominal pain COMPARISON: None RADIOPHARMACEUTICAL: Tc99m Choletec DOSE: 6.5 mCi given IV. TECHNIQUE: Abdominal functional images were obtained and submitted for interpretation. FINDINGS: Functional images obtained up to 120 minutes showed hepato-intestinal transit time and accumulation of activity within the gallbladder within normal limits. IMPRESSION: Negative hepatobiliary scan for acute cholecystitis or extrahepatic biliary obstruction.
== END | disposition home or self-care (01) ==
LOC: RAH 09:34
PROVIDERS: ATTEND Surgery
DX: R10.9 Unspecified abdominal pain (principal)
CPT/HCPCS: 78226; A9537

== ENCOUNTER 2025-08-05 02:05 | Emergency (ER) | payer MEDICARE ==
[~2025-08-05] VITALS: Ht 154.9 cm; Wt 67.6 kg
--- NOTE | 2025-08-05 03:18 | HMCIMG ---
EXAM: CR Left Shoulder, 4 Views. CLINICAL HISTORY: FALL. COMPARISON: None provided. FINDINGS: BONES: No acute fracture or aggressively appearing osseous lesion. JOINTS: There is evidence of reduced gleno-humeral and acromio-humeral arch space with subarticular sclerosis and osteophytes, with a large humeral spur arising from the inferomedial aspect of the humeral head, suggestive of degenerative changes. Similar changes in the left acromio-clavicular joint. No evidence of dislocation of the humerus head. Postoperative changes in the lower cervical vertebrae. SOFT TISSUES: The soft tissues are unremarkable. IMPRESSION: No acute abnormality was evident on examination of the right shoulder. Moderate degenerative changes in the left gleno-humeral and acromio-clavicular joint. Advise MRI shoulder joint if clinically required. /[place]
--- NOTE | 2025-08-05 03:23 | HMCIMG ---
EXAM: CT Head Without IV contrast. CLINICAL HISTORY: FALL. TECHNIQUE: Axial computed tomography images of the head/brain without intravenous contrast. COMPARISON: None provided. FINDINGS: BRAIN: No evidence of acute hemorrhage. No mass lesion. No CT evidence for acute territorial infarct. No midline shift or extra-axial collections. Mild prominent sulcal spaces over the bilateral cerebral hemisphere, sylvian fissure, and basal cistern. Chronic small vessel ischemic changes are present. VENTRICLES: No hydrocephalus. ORBITS: The orbits are unremarkable. SINUSES AND MASTOIDS: The paranasal sinuses and mastoid air cells are clear. BONES: No fracture. SOFT TISSUES: Unremarkable. IMPRESSION: No acute intracranial abnormality. Mild age-related cerebral atrophic changes. Chronic small vessel ischemic disease. /[place]
--- NOTE | 2025-08-05 03:36 | ERN ---
General Chief Complaint: Mechanical Fall Stated Complaint: FALL Time Seen by MD: 02:06 Source: patient History of Present Illness Initial Comments PATIENT IS A 70-YEAR-OLD FEMALE COMING IN AFTER SHE HAD A FALL EARLIER TODAY. PER PATIENT SHE FELL BACK HITTING HERSELF IN THE HEAD IN HIS CONCERNED BECAUSE SHE DOES HAVE SWELLING IN THE BACK OF THE HEAD. SHE DID NOT LOSE CONSCIOUSNESS. LONG WITH THE SHE WAS COMPLAINING OF SHOULDER PAIN. Allergies: Coded Allergies: codeine (Unverified Allergy, DIARRHEA, 11/11/13) Home Meds Reported Medications Carvedilol (Carvedilol) 6.25 Mg Tablet, 6.25 MG PO BID, TAB 07/21/24 Pantoprazole Sodium (Pantoprazole Sodium) 40 Mg Tablet.dr, 1 TAB PO DAILY for 30 Days, #30 TAB 0 Refills 07/21/24 Paroxetine Mesylate (Paroxetine) 7.5 Mg Capsule, 30 MG PO DAILY, CAP 07/21/24 Famotidine (Pepcid) 40 Mg Tablet, 40 MG PO PM, TAB 07/21/24 Fluticasone/Umeclidin/Vilanter (Trelegy Ellipta 100-62.5-25) 100-62.5 Blst.w.dev, 1 PUFF IH DAILY for 30 Days, #1 EACH 0 Refills 07/21/24 Montelukast Sodium (Montelukast Sodium) 10 Mg Tablet, 10 MG PO DAILY, TAB 06/21/20 Amlodipine Besylate (Amlodipine Besylate) 5 Mg Tablet, 5 MG PO DAILY, TAB 01/09/17 Past Medical History Past Medical History: Hypertension Past Surgical History: Other Surgical History Other: NECK SGX, BILAT KNEE SGX, BACK SGX Family History Family History: Negative Social History Social History: Negative ROS Dictation CONSTITUTIONAL: NO CHILLS, NO FEVER, NO WEAKNESS, NO DIAPHORESIS, NO MALAISE. HEAD/FACE: SIGNS OF TRAUMA. EENT: NO EYE PAIN, NO BLURRED VISION, NO TEARING, NO DOUBLE VISION, NO EAR PAIN, NO EAR DISCHARGE, NO NOSE PAIN, NO NASAL CONGESTION, NO THROAT PAIN, NO THROAT SWELLING, NO MOUTH PAIN. RESPIRATORY: NO COUGH, NO ORTHOPNEA, NO SOB, NO STRIDOR, NO WHEEZING. CARDIOVASCULAR: NO CHEST PAIN, NO EDEMA, NO PALPITATIONS, NO SYNCOPE. GASTROINTESTINAL/ABDOMINAL: NO ABDOMINAL PAIN, NO CONSTIPATION, NO DIARRHEA, NO NAUSEA, NO VOMITING. GENITOURINARY: NO ABNORMAL DISCHARGE, NO DYSURIA, NO FREQUENT URINATION, NO HEMATURIA. NO COMPLAINTS OF PAIN IN THE GENITALS. MUSCULOSKELETAL: NO BACK PAIN, NO GOUT, NO JOINT PAIN, NO JOINT SWELLING, NO MUSCLE PAIN, NO MUSCLE STIFFNESS, NO NECK PAIN. INTEGUMENTARY: NO CHANGE IN COLOR, NO CHANGE IN HAIR/NAILS, NO DRYNESS, NO LESION, NO LUMPS, NO RASH. NEUROLOGICAL/PSYCH: NO ANXIETY, NOT DEPRESSED, NO EMOTIONAL PROBLEM, NO HEADACHE, NO NUMBNESS, NO PRE-EXISTING DEFICIT, NO HISTORY OF SEIZURES, NO TREMORS, NO WEAKNESS. HEMATOLOGIC/LYMPHATIC: NOT ANEMIC, NO HISTORY OF BLOOD CLOTS, NO APPARENT BLEEDING, NO BRUISING, GLANDS NOT SWOLLEN. ALL SYSTEMS NEGATIVE, EXCEPT NOTED. Physical Exam Physical Exam Dictation VITAL SIGNS: REVIEWED. GENERAL APPEARANCE: ALERT, ORIENTED X3, NO ACUTE DISTRESS, OBESE. HEAD AND FACE: TRAUMATIC. EYES: PERRL, PINK CONJUNCTIVAS, EYELID NO TRAUMA, ANTERIOR CHAMBER CLEAR. EARS: PINNAS INTACT AND NO SIGNS OF TRAUMA OR ERYTHEMA. EAR CANALS CLEAR AND NO DISCHARGE. TMS NO ERYTHEMA. NOSE: NO DISCHARGE, NO BLEEDING. OROPHARYNX: MOUTH NORMAL, TEETH NO CARIES, TONGUE PINK. PHARYNX CLEAR, NO ERYTHEMA. TONSILS NO EXUDATES, NO ABSCESSES NOTED. MUCOUS MEMBRANE MOIST. NECK: SUPPLE, NON-TENDER, NO THYROMEGALY, NO MASSES, NO JVD, NO BRUITS. BREAST: DEFERRED. CHEST: NO TENDERNESS, NO CREPITUS, NO PARADOXICAL MOVEMENT, NO RETRACTIONS. LUNGS: CLEAR, WELL-VENTILATED, SYMMETRIC, NO RALES, NO WHEEZING, NO RHONCHI, NO STRIDOR, GOOD BREATH SOUNDS BILATERALLY. HEART: REGULAR RATE, REGULAR RHYTHM, NO MURMUR, NO GALLOPS. VASCULAR: NO PERIPHERAL EDEMA. ABDOMEN: SOFT, POSITIVE BOWEL SOUNDS, NONDISTENDED, NO GUARDING, NONTENDER, NO REBOUND, NO MASSES NO HEPATOMEGALY, NO SPLENOMEGALY, NO ROGERS'S SIGN, NO HERNIAS. RECTAL: DEFERRED. GENITAL: DEFERRED. NEUROLOGICAL: NORMAL SPEECH, GROSS MOTOR FUNCTION INTACT, GROSS SENSORY F UNCTION INTACT. MUSCULOSKELETAL: NECK NONTENDER, FULL RANGE OF MOTION, BACK NONTENDER, FULL RANGE OF MOTION. EXTREMITIES: NONTENDER, FULL RANGE OF MOTION. SKIN: COLOR PINK, DRY, NO TURGOR, NO RASH, NO LACERATIONS, NO ABRASIONS, NO CONTUSIONS. LYMPHATICS: DEFERRED. Results Laboratory and Microbiology Labs Reviewed?: Yes EKG/XRAY/US/CT/MRI X-RAY Comment Signed PATIENT: KATLIN HUMPHREY MR#: [id number] : 1955 SEX: F AGE: 70 LOCATION: [facility] ORDER 3 STATUS: REG ER [facility] REPORT#: [id number] SERVICE 1 REASON: FALL ORDERING PHYSICIAN: CHICO CAMP MD PROCEDURE: SHOL 2V LT - SHOULDER COMP 2+VWS LT EXAM: CR Left Shoulder, 4 Views. CLINICAL HISTORY: FALL. COMPARISON: None provided. FINDINGS: BONES: No acute fracture or aggressively appearing osseous lesion. JOINTS: There is evidence of reduced gleno-humeral and acromio-humeral arch space with subarticular sclerosis and osteophytes, with a large humeral spur arising from the inferomedial aspect of the humeral head, suggestive of degenerative changes. Similar changes in the left acromio-clavicular joint. No evidence of dislocation of the humerus head. Postoperative changes in the lower cervical vertebrae. SOFT TISSUES: The soft tissues are unremarkable. IMPRESSION: No acute abnormality was evident on examination of the right shoulder. Moderate degenerative changes in the left gleno-humeral and acromio-clavicular joint. Advise MRI shoulder joint if clinically required. /[place] DICTATED BY: KAYCEE SANDHU Jr., MD DATE: 08/05/25416 ELECTRONICALLY SIGNED BY: KAYCEE SANDHU Jr., MD DATE: 08/05/25416 CT Scan Comment [address] [address] IMAGING REPORT Signed PATIENT: KATLIN HUMPHREY MR#: [id number] : 1955 SEX: F AGE: 70 LOCATION: [facility] ORDER 3 STATUS: REG ER REPORT#: [id number] SERVICE 1 REASON: FALL ORDERING PHYSICIAN: CHICO CAMP MD PROCEDURE: HEAD WO - CT HEAD/BRAIN W/O CONTRAST EXAM: CT Head Without IV contrast. CLINICAL HISTORY: FALL. TECHNIQUE: Axial computed tomography images of the head/brain without intravenous contrast. COMPARISON: None provided. FINDINGS: BRAIN: No evidence of acute hemorrhage. No mass lesion. No CT evidence for acute territorial infarct. No midline shift or extra-axial collections. Mild prominent sulcal spaces over the bilateral cerebral hemisphere, sylvian fissure, and basal cistern. Chronic small vessel ischemic changes are present. VENTRICLES: No hydrocephalus. ORBITS: The orbits are unremarkable. SINUSES AND MASTOIDS: The paranasal sinuses and mastoid air cells are clear. BONES: No fracture. SOFT TISSUES: Unremarkable. IMPRESSION: No acute intracranial abnormality. Mild age-related cerebral atrophic changes. Chronic small vessel ischemic disease. /[place] DICTATED BY: KAYCEE SANDHU Jr., MD DATE: 08/05/25421 ELECTRONICALLY SIGNED BY: KAYCEE SANDHU Jr., MD DATE: 08/05/25421 [facility] MDM: DIFFERENTIAL DIAGNOSIS: FALL, HEAD INJURY, RATIONALE: TESTS CONSIDERED AND ORDERED SECONDARY TO SHARED DECISION MAKING INCLUDE: PREVIOUS OUTSIDE RECORDS REVIEWED: OLD ER VISITS. RISK OF COMPLICATION AND/OR MORBIDITY OR MORTALITY OF PATIENT MANAGEMENT: NONE MEDICATIONS-PER MEDICATION RECONCILIATION NEED FOR HOSPITALIZATION: PATIENT DOES NOT MEET CRITERIA FOR HOSPITALIZATION. NEED FOR EMERGENCY MAJOR/MINOR SURGERY: NO PATIENT IS A 5-YEAR-OLD SHE HAD A FALL EARLIER TODAY. PATIENT DID NOT LOSE CONSCIOUSNESS WITH A HAS A SOME TRAUMA TO THE OCCIPITAL REGION OF HER HEAD. IMAGING STUDIES WITHIN NORMAL LIMITS. PATIENT WILL BE DISCHARGED IN STABLE CONDITION. ED Course Orders Procedure Category Date Status Time Ct Head/Brain W/O CT 08/05/25 Resulted Contrast 02:12 Shoulder Comp 2+Vws Lt RAD 08/05/25 Resulted 02:12 Vital Signs Date Time Temp Pulse Resp B/P (MAP) Pulse Ox O2 Delivery O2 Flow Rate FiO2 08/05/25 02:06 96.6 71 18 131/82 98 DX & DISP Disposition: Discharge Departure Impression: Primary Impression: Fall from standing Condition: Stable Additional Instructions: FOLLOW-UP WITH PRIMARY CARE PROVIDER IN 1 TO 2 DAYS. TAKE MEDICATIONS DIRECTED HERE IN THE EMERGENCY ROOM. OKAY TO CONTINUE HOME MEDICATIONS UNLESS OTHERWISE DISCUSSED DURING YOUR VISIT IN THE EMERGENCY ROOM TODAY. RETURN TO YOUR NEAREST EMERGENCY ROOM IF SYMPTOMS WORSEN OR IF THERE IS NO IMPROVEMENT. CALL 911 IF YOU NEED IMMEDIATE ASSISTANCE. TAKE TYLENOL [id number] NEEDED AND IF NO CONTRAINDICATIONS ARE PRESENT. INCREASE ORAL HYDRATION. A WOUND CULTURE OR URINE CULTURE WAS ORDERED HERE IN THE EMERGENCY ROOM DEPARTMENT PLEASE FOLLOW-UP WITH PRIMARY CARE PROVIDER AND ADVISE THEM TO GET REPORTS FROM OUR FACILITY. IF YOU HAD ANY MINDY WRAP/SPLINTS THAT WERE APPLIED HERE, PLEASE DO NOT REMOVE THEM UNTIL YOU SEE YOUR PRIMARY CARE OR SPECIALTY. REFERRALS: Referrals: ISRAEL MAYFIELD MD (PCP) Time of Disposition: 03:53 CHICO CAMP MD Aug 05, 2025 03:36
[2025-08-05 04:03] VITALS: BP 138/75; PULSE 83; RESP 18; TEMP 97.8; O2SAT 97
== END 2025-08-05 04:18 | disposition home or self-care (01) ==
LOC: EDH 02:05
DX: S09.90XA Unspecified injury of head, initial encounter (principal); M25.512 Pain in left shoulder; I10 Essential (primary) hypertension; Z88.5 Allergy status to narcotic agent; Z79.899 Other long term (current) drug therapy; W18.39XA Other fall on same level, initial encounter; Y93.89 Activity, other specified; Y92.89 Other specified places as the place of occurrence of the external cause; Y99.8 Other external cause status
CPT/HCPCS: 70450; 73030; 99284